=== PATIENT | male | born 1985 | race Caucasian/White ===

== ENCOUNTER 2025-02-19 19:59 | Emergency (ER) | payer SELFPAY ==
[2025-02-19] MEDS ORDERED: Sodium Chloride 0.9% 10 ML Syringe FLUSH PRN ×2 (20:02→21:46)
[2025-02-19 20:28] LABS: BASOPHILS ABSOLUTE AUTO 0.1 x10-3/uL (0.0-0.3); BASOPHILS PERCENT AUTO 0.8 % (0.3-3.8); EOSINOPHILS ABSOLUTE AUTO 0.3 x10-3/uL (0.0-0.6); EOSINOPHILS PERCENT AUTO 2.2 % (0.1-6.8); LYMPHOCYTES ABSOLUTE AUTO 4.8 x10-3/uL (0.5-4.5); LYMPHOCYTES PERCENT AUTO 40.3 % (15.8-45.3); MEAN PLATELET VOLUME 6.5 fL (6.7-11.0); MONOCYTES ABSOLUTE AUTO 0.8 x10-3/uL (0.0-1.2); MONOCYTES PERCENT AUTO 6.7 % (5.5-15.2); NEUTROPHILS ABSOLUTE AUTO 6.0 x10-3/uL (1.7-6.9); NEUTROPHILS PERCENT AUTO 50.0 % (40.3-71.8); PLATELET COUNT,PLT 333 x10(3)uL (117-477); RED BLOOD CELL COUNT 5.10 x10(6)uL (3.90-5.90); RED CELL DISTRIBUTION WIDTH 13.1 % (12.4-15.0); WHITE BLOOD CELL COUNT,WBC 12.0 x10-3/uL (3.2-10.1)
[2025-02-19 20:37] LABS: BLOOD UREA NITROGEN,BUN 17 mg/dL (7-18); CARBON DIOXIDE,CO2 28 mmol/L (21-32); CHLORIDE,CL 102 mmol/L (100-110); CREATININE 0.8 mg/dL (0.70-1.30); EST CRCL DRUG DOSING (CG) 134.72 mL/min; ESTIMATED GFR 115 mL/min (>60); GLUCOSE RANDOM 114 mg/dL (80-116); POTASSIUM,K 4.0 mmol/L (3.5-5.3); SODIUM,NA 138 mmol/L (135-145)
[2025-02-19 20:44] LABS: A/G RATIO 1.1; ALANINE AMINOTRANSFERASE,ALT 36 U/L (12-36); ASPARTATE AMNIOTRANSFERASE,AST 16 IU/L (5-25); BILIRUBIN TOTAL 0.2 mg/dL (0.1-1.3); PROTEIN TOTAL,TP 7.6 g/dL (6.0-8.0)
[2025-02-19 20:48] LABS: PRO B-TYPE NATRIUR PEPT,BNPPRO 13.0 pg/mL (<=125)
[2025-02-19 21:27] LABS: INR 0.97 (1.00-1.24); PTT,PARTIAL THROMBOPLSTIN TIME 26.1 SECONDS (24.4-33.2)
[2025-02-19] MEDS: Iopamidol 755 Mg/ML 100 ML Bottle IV SCH (22:28)
== END 2025-02-19 23:20 | disposition home or self-care (01) ==
LOC: FB.ED 19:59
DX: U07.0 Vaping-related disorder (principal); R09.1 Pleurisy; Z79.899 Other long term (current) drug therapy
CPT/HCPCS: 36415; 71045; 71275; 80053; 83880; 84484; 85025; 85379; 85610; 85730; 93005; 99285; A9270; Q9967